=== PATIENT | male | born 1995 | race Caucasian/White ===

== ENCOUNTER 2025-02-26 14:34 | Emergency (ER) | payer SELFPAY ==
[2025-02-26 14:44] VITALS: TEMP 98.7; BMI 39.5
[2025-02-26 15:41] LABS: ABSOLUTE IMMATURE GRANULOCYTES 0.03 x10^3/uL (0.0-0.031); BASOPHILS # 0.01 x10^3/uL (0.01-0.08); EOSINOPHIL % 0.3 % (0.8-7.0); EOSINOPHILS # 0.02 x10^3/uL (0.04-0.54); MCHC 34.9 g/dl (32.3-36.5); MEAN CELL VOLUME 100.5 fl (79.0-92.2); MEAN PLT VOLUME 9.1 fl (9.4-12.4); MONOCYTE # 0.72 x10^3/uL (0.30-0.82); MONOCYTE % 12.3 % (5.3-12.2); RDW 13.8 % (12.0-15.6)
[2025-02-26] MEDS: morphine CARPU-JECT 4 MG/1 ML DISP.SYRIN IVPUSH ONE (15:44)
[2025-02-26 15:48] LABS: INR 1.14 (0.83-1.09); PROTHROMBIN TIME (PATIENT) 12.5 SEC (9.7-13.0)
[2025-02-26 15:50] LABS: ACTIVATED PTT 32.0 SECONDS (25.2-36.5)
[2025-02-26 16:06] LABS: GLUCOSE,RANDOM 103.0 mg/dL (74-106); TOT PROT 7.8 g/dl (6.4-8.2)
[2025-02-26 16:07] LABS: CO2 27.0 mmol/L (21-32)
[2025-02-26 16:09] LABS: ALK PHOS 64.0 U/L (40-150)
[2025-02-26 16:11] LABS: SGOT/AST 39.0 U/L (5-34); SGPT/ALT 70.0 U/L (0-55)
[2025-02-26 16:12] LABS: CREATININE 1.0 mg/dL (0.55-1.3)
[2025-02-26] MEDS ORDERED: LIDOCAINE 5% TOPICAL PATCH ONE (16:31)
[2025-02-26 16:36] LABS: HCV DIAGNOSTIC IN-HOUSE W/RFLX NON-REACTIVE (NONREACTIVE); HIV INTERPRETATION NEGATIVE (NEGATIVE)
[2025-02-26] MEDS: LIDOCAINE 5% TOPICAL PATCH TP ONE (16:48)
[2025-02-26 17:30] VITALS: BP 128/64; PULSE 86; RESP 18
[2025-02-26] MEDS ORDERED: LIDOCAINE PATCH REMOVAL MC SCH (22:00)
== END 2025-02-26 18:04 | disposition home or self-care (01) ==
LOC: JER 14:34
PROC: 3E033NZ Introduction of Analgesics, Hypnotics, Sedatives into Peripheral Vein, Percutaneous Approach (ICD-10-PCS; principal; 2025-02-26)
DX: M54.50 Low back pain, unspecified (principal); M25.552 Pain in left hip; R11.0 Nausea; W11.XXXA Fall on and from ladder, initial encounter
CPT/HCPCS: 36415; 70450-TC; 71260-TC; 72125-TC; 72128-TC; 72131-TC; 74177-TC; 80053; 83735; 85025; 85610; 85730; 86803; 86850; 86900; 86901; 87389; 93005; 93010; 99285-25